=== PATIENT | female | born 1985 | race Caucasian/White ===

== ENCOUNTER 2019-02-03 15:54 | Emergency (ER) | payer OTHER ==
--- NOTE | 2019-02-03 16:10 | PDOC ---
Rapid Medical Evaluation Chief Complaint: Shortness of Breath Time Seen by Provider: 02/03/19 16:07 Medical Evaluation: Allergies Allergy/AdvReac Type Severity Reaction Status Date / Time No Known Allergies Allergy Verified 10/05/12 23:02 02/03/19 16:08 I did a brief in person evaluation on this patient. CC: Pt complains of right sided rib pain x 9 days ago. She now has right rib pain with hemoptysis. Pt states she was evaluated afterward and her rib xrays were negative. Pt denies being on BC and denies hx of PEs. HPI: PE: Skin: Clear Lungs: Clear Heart:RRR Abd: soft, non tender MS: Moves all extremities without difficulty Neuro: alert Psych: appropriate affect. I have ordered: labs and CXR/ribs Pt will proceed to main ED for further evaluation. Discharge Disposition - Diagnosis Rib pain on right side - Referrals - Patient Instructions - Post Discharge Activity
[2019-02-03 16:11] VITALS: BMI 26.6
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
[2019-02-03 19:20] LABS: ALBUMIN 4.2 g/dl (3.4-5.0); ALK PHOS 64 U/L (45-117); ANION GAP 8 MMOL/L (8-16); BILIRUBIN,TOTAL 0.5 mg/dL (0.2-1); BLOOD UREA NITROGEN 14 mg/dL (7-18); CHLORIDE 105 mmol/L (98-107); CO2 24 mmol/L (21-32); CREATININE 0.9 mg/dL (0.55-1.3); GLUCOSE,RANDOM 104 mg/dL (74-106); SGOT/AST 52 U/L (15-37); SGPT/ALT 36 U/L (13-61); SODIUM 136 mmol/L (136-145); TOT PROT 7.9 g/dl (6.4-8.2)
[2019-02-03] MEDS ORDERED: ONDANSETRON *ODT* 4 MG TABLET SL ONE (19:21)
[2019-02-03] MEDS ORDERED: SODIUM CHLORIDE 1,000 ML IV STA (19:28)
[2019-02-03] MEDS ORDERED: ONDANSETRON *ODT* 4 MG TABLET ONE ×2 (19:31→19:36)
[2019-02-03 20:09] LABS: BASO % 0.6 % (0-2.0); EOS % 0.7 % (0-4.5); HEMATOCRIT 38.4 % (32.4-45.2); HEMOGLOBIN 13.3 GM/dL (10.7-15.3); LYMPH % 36.5 % (8-40); MCH 32.1 pg (25.7-33.7); MCHC 34.6 g/dl (32.0-36.0); MEAN CELL VOLUME 92.9 fl (80-96); MONO % 6.8 % (3.8-10.2); NEUT % 55.4 % (42.8-82.8); PLATELET COUNT 216 K/MM3 (134-434); RBC 4.13 M/mm3 (3.60-5.2); RDW 12.7 % (11.6-15.6); WHITE BLOOD COUNT 9.7 K/mm3 (4.0-10.0)
[2019-02-03 20:18] LABS: HCG,QUALITATIVE URINE Negative; URINE APPEARANCE CLEAR; URINE BILIRUBIN NEGATIVE (NEGATIVE); URINE COLOR YELLOW; URINE GLUCOSE (UA) NEGATIVE (NEGATIVE); URINE KETONE TRACE (NEGATIVE); URINE LEUK ESTERASE NEGATIVE (NEGATIVE); URINE NITRITE NEGATIVE (NEGATIVE); URINE PROTEIN NEGATIVE (NEGATIVE); URINE UROBILINOGEN 0.2 mg/dL (0.2-1.0)
[2019-02-03] MEDS ORDERED: KETOROLAC TROMETHAMINE 30 MG/1 ML VIAL IVPUSH ONE (21:03)
[2019-02-03] MEDS ORDERED: KETOROLAC TROMETHAMINE 30 MG/1 ML VIAL ONE (21:08)
[2019-02-03] MEDS ORDERED: LIDOCAINE 5% TOPICAL PATCH ONE (21:12)
[2019-02-03] MEDS ORDERED: LIDOCAINE 5% TOPICAL PATCH TP ONE (21:15)
--- NOTE | 2019-02-03 21:26 | PDOC ---
*Physical Exam - Vital Signs Last Vital Signs Temp Pulse Resp BP Pulse Ox 73 18 115/77 98 02/03/19 16:08 02/03/19 16:08 02/03/19 16:08 02/03/19 16:08 - Physical Exam General Appearance: Yes: Appropriately Dressed Respiratory/Chest: positive: Chest Tender (rib and RUQ) ED Treatment Course - LABORATORY CBC & Chemistry Diagram: 02/03/19 19:40 02/03/19 17:56 - ADDITIONAL ORDERS Additional order review: Laboratory Results 02/03/19 02/03/19 19:28 17:56 Sodium 136 Potassium 5.0 Chloride 105 Carbon Dioxide 24 Anion Gap 8 BUN 14 Creatinine 0.9 Creat Clearance w eGFR 72.11 Random Glucose 104 Calcium 9.0 Total Bilirubin 0.5 AST 52 H ALT 36 Alkaline Phosphatase 64 Total Protein 7.9 Albumin 4.2 Urine Color Yellow Urine Appearance Clear Urine pH 7.0 Ur Specific [place] 1.012 Urine Protein Negative Urine Glucose (UA) Negative Urine Ketones Trace H Urine Blood Negative Urine Nitrite Negative Urine Bilirubin Negative Urine Urobilinogen 0.2 Ur Leukocyte Esterase Negative Urine HCG, Qual Negative 02/03/19 02/03/19 19:40 17:56 RBC 4.13 Cancelled MCV 92.9 Cancelled MCHC 34.6 Cancelled RDW 12.7 Cancelled MPV 9.0 Cancelled Neutrophils % 55.4 Cancelled Lymphocytes % 36.5 Cancelled Monocytes % 6.8 Cancelled Eosinophils % 0.7 Cancelled Basophils % 0.6 Cancelled - Medications Given in the ED: ED Medications Discontinued Medications Generic Name Dose Route Start Last Admin Trade Name [place] PRN Reason Stop Dose Admin Sodium Chloride 1,000 mls @ 1,000 mls/hr 02/03/19 19:28 02/03/19 20:00 Normal Saline - IV 02/03/19 20:27 1,000 mls/hr ASDIR STA Administration Ketorolac Tromethamine 30 mg 02/03/19 21:03 02/03/19 21:05 Toradol Injection - IVPUSH 02/03/19 21:04 30 mg ONCE ONE Administration Lidocaine 1 patch 02/03/19 21:15 02/03/19 21:16 Lidoderm Patch - TP 02/03/19 21:16 1 patch ONCE ONE Administration Ondansetron HCl 4 mg 02/03/19 19:21 02/03/19 19:45 Ronni Odt - SL 02/03/19 19:22 4 mg ONCE ONE Administration Oxycodone/Acetaminophen 1 combo 02/03/19 17:41 02/03/19 18:02 Percocet 5/325 - PO 02/03/19 17:42 1 combo ONCE ONE Administration Medical Decision Making - Medical Decision Making 02/03/19 21:22 labs reviewed. has right rib pain and RUQ pain. US and xray negative., will treat musculoskeletal pain. lidocaine patch, NSAIDS, flexeril 02/05/19 13:49 *DC/Admit/Observation/Transfer Diagnosis at time of Disposition: Rib pain on right side, Musculoskeletal pain - Discharge Dispostion Disposition: HOME Condition at time of disposition: Stable - Prescriptions Prescriptions: Cyclobenzaprine HCl [Flexeril 10 mg] 10 mg PO BID PRN #14 tablet PRN Reason: Muscle Spasms Ibuprofen 600 mg PO QID PRN #20 tablet PRN Reason: Pain Lidocaine 5% Patch [Lidoderm -] 1 patch TP DAILY #7 patch - Referrals Referrals: Fatoumata Serrano MD [Primary Care Provider] - Call tomorrow - Patient Instructions Printed Discharge Instructions: DI for Musculoskeletal Pain Additional Instructions: Lidocaine patch once a day to the area. You may apply ice to the area or heat Take ibuprofen every 6 hours with food as prescribed Take Flexeril as prescribed. This is a muscle relaxer he can make you sleepy. Do not drive or operate heavy machinery after taking this. Drink plenty of fluids Follow-up with your doctor as soon as possible. Return to the emergency room for any worsening symptoms - Post Discharge Activity
[2019-02-03 21:41] VITALS: BP 99/63; PULSE 52; TEMP 98.6
[2019-02-03] MEDS ORDERED: LIDOCAINE PATCH REMOVAL MC SCH (22:00)
== END 2019-02-03 21:35 | disposition home or self-care (01) ==
LOC: JER 15:54
PROC: 3E0337Z Introduction of Electrolytic and Water Balance Substance into Peripheral Vein, Percutaneous Approach (ICD-10-PCS; principal; 2019-02-03)
PROC: 3E0333Z Introduction of Anti-inflammatory into Peripheral Vein, Percutaneous Approach (ICD-10-PCS; 2019-02-03)
DX: R07.81 Pleurodynia (principal); M54.6 Pain in thoracic spine
CPT/HCPCS: 36415; 71046-TC-FY; 71101-TC-RT-FY; 76705-TC; 80053; 81003; 84703; 85025; 99283-25; J7030; Q0162